=== PATIENT | female | born 1965 | race Caucasian/White ===

== ENCOUNTER 2018-04-18 16:10 | Emergency (ER) | payer OTHER ==
[2016-02-10 15:06] VITALS: Wt 56.2 kg
[~2018-04-18 16:10] MED LIST: AMI25; ASPI81TA94 PO; ESTR-108 TD; ESTR1PAT97 TD; HYDR-2946 PO; IBUP800T37 PO; LEV25 PO; LEVO125T77 PO; LEVO50TA86 PO; LEVO75TA68 PO; ONDA4TAB PO; PAN40 PO; PER PO; PRO25 PO; SIMV-49 PO; SIMV5TAB60 PO; VENL75TA12 PO
--- NOTE | 2018-04-18 16:17 | ER Report ---
History and Physical Time Seen By MD: 16:16 HPI/ROS CHIEF COMPLAINT: Palpitations/dizziness HISTORY OF PRESENT ILLNESS: PT states that she had an episode of a rapid heart rate at 10m. lasted for 10 minutes or so. Pt states it broke on its own. Pt tried to take her pulse but it was too fast to count. PT states that she felt a burning in her throat when it was occuring. no sob. no nausea. Pt states she came in because she still feels light headed. Pt feels as if her heart is beating fast now, however on the monitor it is only 70bpm. Pt has hx of thyroid ds.Pt has also had cardiac work up a year ago in [facility]. Pt had a stress test that was positive so went on to have a cta coronary which showed minimal LAD calcificaions without significant narrowing. PTs EF was 63% REVIEW OF SYSTEMS: Constitutional: No fever, no chills. Eyes: No discharge. ENT: No sore throat. Cardiovascular: + chest pain, + palpitations. Respiratory: No cough, no shortness of breath. Gastrointestinal: No abdominal pain, no vomiting. Genitourinary: No hematuria. Musculoskeletal: No back pain. Skin: No rashes. Neurological: No headache. Allergies: Coded Allergies: No Known Drug Allergies (Verified , 04/18/18) Home Meds Reported Medications Estradiol (ESTRADIOL TRANSDERMAL PATCH) 1 Each Patch.tdwk, 1 EACH TD 07/26/17 Levothyroxine Sodium (LEVOTHYROXINE SODIUM) 50 Mcg Tablet, 50 MCG PO QDAY, TAB 07/26/17 Venlafaxine Hcl (VENLAFAXINE HCL) 75 Mg Tab, 75 MG PO DAILY, TAB 07/26/17 Simvastatin (SIMVASTATIN) 5 Mg Tablet, 5 MG PO HS, TAB 07/26/17 Past Medical/Surgical History Pmhx: hypothyroid, pericarditis Pshx: non contrib Reviewed Nurses Notes: Yes Old Medical Records Reviewed: Yes Hx Smoking: No Smoking Status: Never Smoker Exposure to Second Hand Smoke?: No Hx Substance Use Disorder: No Hx Alcohol Use: No Constitutional Vital Sign - Last 24 Hours 04/18/18 16:16 Temp 98.5 Pulse 79 Resp 19 B/P (MAP) 142/89 Pulse Ox 98 O2 Delivery Room Air Physical Exam General Appearance: The patient is alert, has no immediate need for airway protection and no signs of toxicity. Eyes: Pupils equal and round no pallor or injection, EOMI ENT: no pharyngeal erythema or exudates, Mucous membranes are moist, TM are nl b/l Respiratory: There are no retractions, lungs are clear to auscultation. Cardiovascular: Regular rate and rhythm. pulses are equal and symmetrical Gastrointestinal: Abdomen is soft and non tender, no masses, bowel sounds normal, no guarding, no rigidity or rebound Neurological: Cranial nerves II-XII grossly intact, no sensory or motor loss Skin: Warm and dry, no rashes. Musculoskeletal: Neck is supple non tender, no vertebral tenderness Extremities are nontender, nonswollen and have full range of motion. DIFFERENTIAL DIAGNOSIS: After history and physical exam differential diagnosis was considered for electrolyte abnl, thyroid abnl, anemic, arrhythmia Medical Decision Making Data Points Result Diagram: 04/18/18 1620 04/18/18 1620 Laboratory Hematology Test 04/18/18 16:20 Red Blood Count 4.75 M/uL (4.17-5.56) Mean Corpuscular Volume 87.4 fL (80.0-96.0) Mean Corpuscular Hemoglobin 30.6 pg (26.0-33.0) Mean Corpuscular Hemoglobin Concent 35.0 g/dL (32.0-36.0) Red Cell Distribution Width 12.8 % (11.5-14.5) Mean Platelet Volume 7.8 fL (7.2-11.1) Neutrophils (%) (Auto) 64.3 % (39.4-72.5) Lymphocytes (%) (Auto) 25.0 % (17.6-49.6) Monocytes (%) (Auto) 6.1 % (4.1-12.4) Eosinophils (%) (Auto) 4.0 % (0.4-6.7) Basophils (%) (Auto) 0.6 % (0.3-1.4) Nucleated RBC Relative Count (auto) 0.0 /100WBC Neutrophils # (Auto) 3.2 K/uL (2.0-7.4) Lymphocytes # (Auto) 1.2 K/uL (1.3-3.6) Monocytes # (Auto) 0.3 K/uL (0.3-1.0) Eosinophils # (Auto) 0.2 K/uL (0.0-0.5) Basophils # (Auto) 0.0 K/uL (0.0-0.1) Nucleated RBC Absolute Count (auto) 0.00 K/uL Sodium Level 139 mmol/L (137-145) Potassium Level 4.0 mmol/L (3.5-5.0) Chloride Level 99 mmol/L (98-107) Carbon Dioxide Level 30 mmol/L (22-31) Blood Urea Nitrogen 14 mg/dl (7-18) Creatinine 0.70 mg/dl (0.52-1.04) Glomerular Filtration Rate Calc > 60.0 Random Glucose 91 mg/dl (75-110) Calcium Level 10.1 mg/dl (8.4-10.2) Total Bilirubin 0.4 mg/dl (0.2-1.3) Aspartate Amino Transf (AST/SGOT) 40 U/L (0-35) Alanine Aminotransferase (ALT/SGPT) 40 U/L (0-56) Alkaline Phosphatase 84 U/L (0-126) Troponin I < 0.012 ng/ml Total Protein 7.9 g/dl (6.3-8.2) Albumin 4.4 g/dl (3.5-5.0) Chemistry Test 04/18/18 16:20 White Blood Count 5.0 k/uL (4.5-11.0) Red Blood Count 4.75 M/uL (4.17-5.56) Hemoglobin 14.6 g/dL (12.0-16.0) Hematocrit 41.5 % (34.0-47.0) Mean Corpuscular Volume 87.4 fL (80.0-96.0) Mean Corpuscular Hemoglobin 30.6 pg (26.0-33.0) Mean Corpuscular Hemoglobin Concent 35.0 g/dL (32.0-36.0) Red Cell Distribution Width 12.8 % (11.5-14.5) Platelet Count 231 K/uL (150-450) Mean Platelet Volume 7.8 fL (7.2-11.1) Neutrophils (%) (Auto) 64.3 % (39.4-72.5) Lymphocytes (%) (Auto) 25.0 % (17.6-49.6) Monocytes (%) (Auto) 6.1 % (4.1-12.4) Eosinophils (%) (Auto) 4.0 % (0.4-6.7) Basophils (%) (Auto) 0.6 % (0.3-1.4) Nucleated RBC Relative Count (auto) 0.0 /100WBC Neutrophils # (Auto) 3.2 K/uL (2.0-7.4) Lymphocytes # (Auto) 1.2 K/uL (1.3-3.6) Monocytes # (Auto) 0.3 K/uL (0.3-1.0) Eosinophils # (Auto) 0.2 K/uL (0.0-0.5) Basophils # (Auto) 0.0 K/uL (0.0-0.1) Nucleated RBC Absolute Count (auto) 0.00 K/uL Glomerular Filtration Rate Calc > 60.0 Calcium Level 10.1 mg/dl (8.4-10.2) Total Bilirubin 0.4 mg/dl (0.2-1.3) Aspartate Amino Transf (AST/SGOT) 40 U/L (0-35) Alanine Aminotransferase (ALT/SGPT) 40 U/L (0-56) Alkaline Phosphatase 84 U/L (0-126) Troponin I < 0.012 ng/ml Total Protein 7.9 g/dl (6.3-8.2) Albumin 4.4 g/dl (3.5-5.0) EKG/Imaging EKG Interpretation nsr @ 70 with no acute changes noted. nl QT ED Course/Re-evaluation Clinical Indication for ER IV: IV Access ED Course PTs ekg is stable. Lab work pending. 04/18/2018 5:06:36 pm Lab work stable, acception of tsh pending. will attempt to send home with holter. 04/18/2018 5:14:05 pm Pt declined a holter when offered. Decision to Disposition Date: Apr 18, 2018 Decision to Disposition Time: 17:06 Depart Departure Latest Vital Signs Vital Signs Date Time Temp Pulse Resp B/P (MAP) Pulse Ox O2 Delivery O2 Flow Rate FiO2 04/18/18 16:16 98.5 79 19 142/89 98 Room Air Impression: Primary Impression: Heart palpitations Condition: Improved Disposition: HOME OR SELF-CARE Referrals: VICENTA GARG MD (PCP) 2 Days Patient Instructions: Palpitations (GEN) Additional Instructions: Follow up with your family doctor. Your thyroid test today is still pending Return for any concerns. YOMI ARRIETA DO Apr 18, 2018 16:16
[2018-04-18] MEDS ORDERED: ASPIRIN 81 MG CHEW PO ONE (16:25)
[2018-04-18 16:43] LABS: PLATELET COUNT, AUTOMATED 231 K/uL (150-450)
--- NOTE | 2018-04-18 17:02 | RADIOLOGY IMAGING REPORT ---
FACILITY: [facility] PATIENT NAME: Cortney Menjivar : 1965 MR: [id number] V: [id number] EXAM DATE: ORDERING PHYSICIAN: YOMI ARRIETA TECHNOLOGIST: [place] [facility] [place] Patient: Cortney Menjivar : 1965 Visit/Account:[id number] Date of Sevice: 04/18/2018 Portable chest, one view. HISTORY: Chest pain. COMPARISON: 09/02/2009. The heart and mediastinum are unremarkable. Pulmonary vessels are unremarkable. The lungs are volum inous. The pleural surfaces are unremarkable. No pneumothorax. Mild scoliosis is present in the thor acolumbar spine. IMPRESSION: Voluminous lungs. Otherwise no evidence of acute cardiopulmonary disease. Report Dictated By: Ho Hurley MD at 04/18/2018 4:56 PM Report E-Signed By: Ho Hurley MD at 04/18/2018 4:57 PM WSN:[email or web address]
[2018-04-18 17:19] VITALS: BP 119/76
--- NOTE | 2018-04-18 17:38 | EKG ---
[facility] PATIENT NAME: PATRICIA WALLER : [id number] MR: [id number] V: [id number] EXAM DATE: ORDERING PHYSICIAN: YOMI ARRIETA TECHNOLOGIST: GABE Test Reason : Blood Pressure : / mmHG Vent. Rate : 071 BPM Atrial Rate : 071 BPM P-R Int : 148 ms QRS Dur : 084 ms QT Int : 404 ms P-R-T Axes : 061 076 070 degrees QTc Int : 439 ms Normal sinus rhythm Normal ECG When compared with ECG of 08-JAN-2014 17:22, T wave inversion no longer evident in Inferior leads T wave inversion less evident in Anterior leads Confirmed by JO DO ([id number]) on 04/18/2018 8:11:10 PM Referred By: Confirmed By:JO DO
== END 2018-04-18 17:26 | disposition home or self-care (01) ==
LOC: ER 16:17
DX: R00.2 Palpitations (principal)
CPT/HCPCS: 71045; 82040; 82247; 82310; 82374; 82435; 82565; 82947; 84075; 84132; 84155; 84295; 84443; 84450; 84460; 84484; 84520; 85025; 93005; 99284

== ENCOUNTER → 2018-08-19 | Outpatient (CLI) | payer OTHER ==
[2016-02-10 15:06] VITALS: BMI 21.3
--- NOTE | 2018-08-20 09:18 | RADIOLOGY IMAGING REPORT ---
FACILITY: [facility] - [place] PATIENT NAME: PATRICIA WALLER : [id number] MR: [id number] V: [id number] EXAM DATE: [id number] ORDERING PHYSICIAN: VICENTA GARG TECHNOLOGIST: Annie Gasca PROCEDURE:BILATERAL DIGITAL SCREENING MAMMOGRAM WITH CAD ASSISTED INTERPRETATION & 3D TOMOSYNTHESIS COMPARISON:Prior mammograms 07/20/17, 02/28/16, 02/07/16, 02/02/15, 12/16/13, 09/13/12. INDICATIONS:screening FINDINGS: A small to moderate amount of fibroglandular tissue is seen throughout the breasts. The parenchymal pattern has remained stable allowing for difference in mammographic technique & patient positioning. There is no evidence of malignant appearing mass, malignant appearing calcifications or other secondary sign of malignancy in either breast. DIAGNOSTIC CATEGORY 1--NEGATIVE. RECOMMENDATIONS: ROUTINE MAMMOGRAM AND CLINICAL EVALUATION. IMPRESSION: BIRADS 1: Negative. No significant abnormality is seen. Dictated by: Marisabel Solitario M.D. on 08/19/2018 at 17:10 Transcribed by: REBECCA on 08/20/2018 at 7:58 Approved by: Marisabel Solitario M.D. on 08/20/2018 at 9:17 [facility]
== END ==
LOC: MAMO 01:23
PROVIDERS: ATTEND Family Medicine
DX: Z12.31 Encounter for screening mammogram for malignant neoplasm of breast (principal)
CPT/HCPCS: 77063; 77067

== ENCOUNTER 2018-11-26 05:57 | Emergency (ER) | payer OTHER ==
[2016-02-10 15:06] VITALS: Wt 56.2 kg
[~2018-11-26 05:57] MED LIST changes: -SIMV5TAB60 PO; +SIMV5TAB69 PO
--- NOTE | 2018-11-26 06:07 | ER Report ---
History and Physical Time Seen By MD: 06:06 HPI/SHARAN CHIEF COMPLAINT: blood in urine HISTORY OF PRESENT ILLNESS: This is a 53 year old female. She had blood in urine starting this morning at 0300. She had had urinary frequency. Noted pink urine and this has worsened. No flank or abdominal pain. She has had 3 doses of Valtrex for shingles and was worried that this might be the cause. No fevers. No trouble with bowels and no blood in bowels. She takes aspirin daily. NO history of kidney stones. No nausea or vomiting. No bruising or nose bleeds. No history of bleeding problems. Allergies: Coded Allergies: No Known Drug Allergies (Verified , 11/26/18) Home Meds Active Scripts Phenazopyridine Hcl (PHENAZOPYRIDINE HCL) 200 Mg Tablet, 200 MG PO TID PRN for PAIN, #10 TAB 0 Refills Prov:LUCERO CHRISTIAN MD 11/26/18 Sulfamethoxazole/Trimet 800-160 Mg Tab (BACTRIM DS TABLET) 1 Each Tablet, 1 TAB PO Q12H for 5 Days, #10 TAB 0 Refills Prov:LUCERO CHRISTIAN MD 11/26/18 Reported Medications Estradiol (ESTRADIOL TRANSDERMAL PATCH) 1 Each Patch.tdwk, 1 EACH TD 07/26/17 Levothyroxine Sodium (LEVOTHYROXINE SODIUM) 50 Mcg Tablet, 50 MCG PO QDAY, TAB 07/26/17 Venlafaxine Hcl (VENLAFAXINE HCL) 75 Mg Tab, 75 MG PO DAILY, TAB 07/26/17 Simvastatin (SIMVASTATIN) 5 Mg Tablet, 5 MG PO HS, TAB 07/26/17 Reviewed Nurses Notes: Yes Hx Smoking: No Smoking Status: Never Smoker Exposure to Second Hand Smoke?: No Hx Substance Use Disorder: No Hx Alcohol Use: No Constitutional Vital Sign - Last 24 Hours 11/26/18 11/26/18 11/26/18 11/26/18 06:02 06:07 06:12 06:59 Temp 97.3 Pulse 84 81 Resp 14 B/P (MAP) 139/79 139/79 (99) 106/84 (91) Pulse Ox 92 96 O2 Delivery Room Air 11/26/18 07:12 Pulse 70 Pulse Ox 90 Physical Exam General Appearance: The patient is alert. No acute distress. Eyes: Pupils are equal, round. No pallor, injection or icterus. ENT: Mucous membranes are moist. Normal oral mucosa. Posterior oropharynx is normal. Neck: Supple and non tender. Respiratory: Lungs are clear to auscultation. Cardiovascular: Regular rate and rhythm. No murmurs, gallops or rubs. Normal capillary refill. Gastrointestinal: Abdomen is soft and non tender. Nondistended. Normal active bowel sounds. No costovertebral angle tenderness with percussion. Neurological: Alert and oriented x3. Skin: Warm and dry. No bruising. DIFFERENTIAL DIAGNOSIS: After history and physical exam, differential diagnosis was considered for hematuria and urinary frequency, will look for urinary infection, kidney stones, other causes of bleeding. Medical Decision Making Data Points Result Diagram: 11/26/18 0619 11/26/18 0619 Laboratory Hematology Test 11/26/18 06:05 11/26/18 06:19 Urine Color Yellow Urine Clarity Clear Urine pH 6.0 pH (4.8-9.5) Urine Specific [place] 1.002 Urine Protein 30 mg/dL (NEGATIVE) Urine Glucose (UA) Negative mg/dL (NEGATIVE) Urine Ketones Negative mg/dL (NEGATIVE) Urine Blood Large (NEGATIVE) Urine Nitrite Negative (NEGATIVE) Urine Bilirubin Negative (NEGATIVE) Urine Urobilinogen Negative mg/dL (0.2-1.9) Urine Leukocyte Esterase Moderate (NEGATIVE) Urine RBC <1 /HPF (0-2/HPF) Urine WBC 18 /HPF (0-5/HPF) Urine Squamous Epithelial Cells Few /LPF (</=FEW) Urine Bacteria Few /HPF (NONE-FEW) Urine Mucus None /HPF (NONE-FEW) Red Blood Count 5.19 M/uL (4.17-5.56) Mean Corpuscular Volume 89.0 fL (80.0-96.0) Mean Corpuscular Hemoglobin 29.4 pg (26.0-33.0) Mean Corpuscular Hemoglobin Concent 33.0 g/dL (32.0-36.0) Red Cell Distribution Width 12.8 % (11.5-14.5) Mean Platelet Volume 7.8 fL (7.2-11.1) Neutrophils (%) (Auto) 76.3 % (39.4-72.5) Lymphocytes (%) (Auto) 13.8 % (17.6-49.6) Monocytes (%) (Auto) 7.7 % (4.1-12.4) Eosinophils (%) (Auto) 1.6 % (0.4-6.7) Basophils (%) (Auto) 0.6 % (0.3-1.4) Nucleated RBC Relative Count (auto) 0.0 /100WBC Neutrophils # (Auto) 6.7 K/uL (2.0-7.4) Lymphocytes # (Auto) 1.2 K/uL (1.3-3.6) Monocytes # (Auto) 0.7 K/uL (0.3-1.0) Eosinophils # (Auto) 0.1 K/uL (0.0-0.5) Basophils # (Auto) 0.1 K/uL (0.0-0.1) Nucleated RBC Absolute Count (auto) 0.00 K/uL Prothrombin Time 13.0 seconds (12.0-14.4) Prothromb Time International Ratio 0.98 Activated Partial Thromboplast Time 27 seconds (23-35) Sodium Level 134 mmol/L (137-145) Potassium Level 3.6 mmol/L (3.5-5.0) Chloride Level 97 mmol/L (98-107) Carbon Dioxide Level 25 mmol/L (22-31) Blood Urea Nitrogen 16 mg/dl (7-18) Creatinine 0.70 mg/dl (0.52-1.04) Glomerular Filtration Rate Calc > 60.0 Random Glucose 99 mg/dl (75-110) Calcium Level 9.7 mg/dl (8.4-10.2) Total Bilirubin 0.8 mg/dl (0.2-1.3) Aspartate Amino Transf (AST/SGOT) 39 U/L (0-35) Alanine Aminotransferase (ALT/SGPT) 45 U/L (0-56) Alkaline Phosphatase 91 U/L (0-126) Total Protein 7.9 g/dl (6.3-8.2) Albumin 4.7 g/dl (3.5-5.0) Chemistry Test 11/26/18 06:05 11/26/18 06:19 Urine Color Yellow Urine Clarity Clear Urine pH 6.0 pH (4.8-9.5) Urine Specific [place] 1.002 Urine Protein 30 mg/dL (NEGATIVE) Urine Glucose (UA) Negative mg/dL (NEGATIVE) Urine Ketones Negative mg/dL (NEGATIVE) Urine Blood Large (NEGATIVE) Urine Nitrite Negative (NEGATIVE) Urine Bilirubin Negative (NEGATIVE) Urine Urobilinogen Negative mg/dL (0.2-1.9) Urine Leukocyte Esterase Moderate (NEGATIVE) Urine RBC <1 /HPF (0-2/HPF) Urine WBC 18 /HPF (0-5/HPF) Urine Squamous Epithelial Cells Few /LPF (</=FEW) Urine Bacteria Few /HPF (NONE-FEW) Urine Mucus None /HPF (NONE-FEW) White Blood Count 8.8 k/uL (4.5-11.0) Red Blood Count 5.19 M/uL (4.17-5.56) Hemoglobin 15.2 g/dL (12.0-16.0) Hematocrit 46.2 % (34.0-47.0) Mean Corpuscular Volume 89.0 fL (80.0-96.0) Mean Corpuscular Hemoglobin 29.4 pg (26.0-33.0) Mean Corpuscular Hemoglobin Concent 33.0 g/dL (32.0-36.0) Red Cell Distribution Width 12.8 % (11.5-14.5) Platelet Count 270 K/uL (150-450) Mean Platelet Volume 7.8 fL (7.2-11.1) Neutrophils (%) (Auto) 76.3 % (39.4-72.5) Lymphocytes (%) (Auto) 13.8 % (17.6-49.6) Monocytes (%) (Auto) 7.7 % (4.1-12.4) Eosinophils (%) (Auto) 1.6 % (0.4-6.7) Basophils (%) (Auto) 0.6 % (0.3-1.4) Nucleated RBC Relative Count (auto) 0.0 /100WBC Neutrophils # (Auto) 6.7 K/uL (2.0-7.4) Lymphocytes # (Auto) 1.2 K/uL (1.3-3.6) Monocytes # (Auto) 0.7 K/uL (0.3-1.0) Eosinophils # (Auto) 0.1 K/uL (0.0-0.5) Basophils # (Auto) 0.1 K/uL (0.0-0.1) Nucleated RBC Absolute Count (auto) 0.00 K/uL Prothrombin Time 13.0 seconds (12.0-14.4) Prothromb Time International Ratio 0.98 Activated Partial Thromboplast Time 27 seconds (23-35) Glomerular Filtration Rate Calc > 60.0 Calcium Level 9.7 mg/dl (8.4-10.2) Total Bilirubin 0.8 mg/dl (0.2-1.3) Aspartate Amino Transf (AST/SGOT) 39 U/L (0-35) Alanine Aminotransferase (ALT/SGPT) 45 U/L (0-56) Alkaline Phosphatase 91 U/L (0-126) Total Protein 7.9 g/dl (6.3-8.2) Albumin 4.7 g/dl (3.5-5.0) Coagulation Test 11/26/18 06:19 Prothrombin Time 13.0 seconds Prothromb Time International Ratio 0.98 Activated Partial Thromboplast Time 27 seconds Urinalysis Test 11/26/18 06:05 Urine Color Yellow Urine Clarity Clear Urine pH 6.0 pH (4.8-9.5) Urine Specific [place] 1.002 Urine Protein 30 mg/dL (NEGATIVE) Urine Glucose (UA) Negative mg/dL (NEGATIVE) Urine Ketones Negative mg/dL (NEGATIVE) Urine Blood Large (NEGATIVE) Urine Nitrite Negative (NEGATIVE) Urine Bilirubin Negative (NEGATIVE) Urine Urobilinogen Negative mg/dL (0.2-1.9) Urine Leukocyte Esterase Moderate (NEGATIVE) Urine RBC <1 /HPF (0-2/HPF) Urine WBC 18 /HPF (0-5/HPF) Urine Squamous Epithelial Cells Few /LPF (</=FEW) Urine Bacteria Few /HPF (NONE-FEW) Urine Mucus None /HPF (NONE-FEW) EKG/Imaging Imaging EXAMINATION: CT Abdomen and Pelvis Without Contrast 11/26/2018 6:42 AM HISTORY: hematuria TECHNIQUE: Renal stone protocol - Spiral scan was obtained through the kidney s, ureters and bladder without intravenous contrast. One of the following dose optimization techniques was utilized in the performance of this exam: Automated exposure control; adjustment of the mA an d/or kV according to the patient's size; or use of an iterative reconstruction technique. Specific details can be referenced in the facility's radiology CT exam operational policy. COMPARISON STUDIES: 11/23/2007. At this point I have the report but cannot retrieve the images for direct comparison. FINDINGS: Right kidney and ureter: Negative. No stone or obstruction. Left kidney and ureter: Negative. No stone or obstruction. Bladder: negative Liver / biliary: Prior cholecystectomy. Pancreas: negative Spleen: Incidental small accessory splenule inferomedially. Adrenal glands: negative Retroperitoneum: negative Pelvic structures: Prior hysterectomy. Bowel / peritoneum / mesenteries: No acute finding. Normal appendix. Vessels: negative Musculoskeletal / Body wall: negative Lymph node assessment: negative Lower chest: 2 mm anterior right lower lobe micronodule (series 2 image 3). IMPRESSION: 1. Negative evaluation for kidney stone or other etiology for hematuria. 2. No significant acute finding otherwise in the abdomen or pelvis. 3. 2 mm right lower lobe pulmonary micronodule. Based on size this would not require follow-up unless otherwise clinically indicated. Report Dictated By: Raymond May MD at 11/26/2018 7:10 AM ED Course/Re-evaluation Clinical Indication for ER IV: IV Access ED Course Urinalysis with changes that suggest urinary infection. CT scan without contrast was negative for kidney stones or other abnormality. Small pulmonary nodule discussed with the patient. CBC and coagulation studies were negative as well. Bactrim and Pyridium for urinary tract infection. Urine culture ordered. Decision to Disposition Date: Nov 26, 2018 Decision to Disposition Time: 07:33 Depart Departure Latest Vital Signs Vital Signs Date Time Temp Pulse Resp B/P (MAP) Pulse Ox O2 Delivery O2 Flow Rate FiO2 11/26/18 07:12 70 90 11/26/18 06:59 106/84 (91) 11/26/18 06:02 97.3 14 Room Air Impression: Primary Impression: Urinary tract infection Condition: Improved Disposition: HOME OR SELF-CARE Referrals: VICENTA GARG MD (PCP) New Scripts Phenazopyridine Hcl (PHENAZOPYRIDINE HCL) 200 Mg Tablet 200 MG PO TID PRN for PAIN, #10 TAB 0 Refills Prov: LUCERO CHRISTIAN MD 11/26/18 Sulfamethoxazole/Trimet 800-160 Mg Tab (BACTRIM DS TABLET) 1 Each Tablet 1 TAB PO Q12H for 5 Days, #10 TAB 0 Refills Prov: LUCERO CHRISTIAN MD 11/26/18 Patient Instructions: Hematuria (ED), Urinary Tract Infection in Women (ED) Additional Instructions: Take the antibiotic Bactrim DS twice a day for 5 days. For the urgency and frequency or urination, you can try taking a medicine called Pyridum 200mg every 8 hours as needed for these symptoms. Increase fluid intake. Follow-up with your primary care provider for re-evaluation if not improving. Problem Qualifiers Primary Impression: Urinary tract infection Urinary tract infection type: acute cystitis Hematuria presence: with hematuria Qualified Codes: N30.01 - Acute cystitis with hematuria LUCERO CHRISTIAN MD Nov 26, 2018 06:07
[2018-11-26 06:31] LABS: PLATELET COUNT, AUTOMATED 270 K/uL (150-450)
[2018-11-26 06:37] LABS: INR 0.98
[2018-11-26 06:59] VITALS: BP 106/84
--- NOTE | 2018-11-26 07:21 | RADIOLOGY IMAGING REPORT ---
FACILITY: [facility] PATIENT NAME: Cortney Menjivar : 1965 MR: [id number] V: [id number] EXAM DATE: ORDERING PHYSICIAN: LUCERO CHRISTIAN TECHNOLOGIST: Location: [facility] Patient: Cortney Menjivar : 1965 Visit/Account:[id number] Date of Sevice: 11/26/2018 EXAMINATION: CT Abdomen and Pelvis Without Contrast 11/26/2018 6:42 AM HISTORY: hematuria TECHNIQUE: Renal stone protocol - Spiral scan was obtained through the kidneys, ureters and bladder without intravenous contrast. One of the following dose optimization techniques was utilized in the performance of this exam: Autom ated exposure control; adjustment of the mA and/or kV according to the patient's size; or use of an i terative reconstruction technique. Specific details can be referenced in the facility's radiology C T exam operational policy. COMPARISON STUDIES: 11/23/2007. At this point I have the report but cannot retrieve the images for d irect comparison. FINDINGS: Right kidney and ureter: Negative. No stone or obstruction. Left kidney and ureter: Negative. No stone or obstruction. Bladder: negative Liver / biliary: Prior cholecystectomy. Pancreas: negative Spleen: Incidental small accessory splenule inferomedially. Adrenal glands: negative Retroperitoneum: negative Pelvic structures: Prior hysterectomy. Bowel / peritoneum / mesenteries: No acute finding. Normal appendix. Vessels: negative Musculoskeletal / Body wall: negative Lymph node assessment: negative Lower chest: 2 mm anterior right lower lobe micronodule (series 2 image 3). IMPRESSION: 1. Negative evaluation for kidney stone or other etiology for hematuria. 2. No significant acute finding otherwise in the abdomen or pelvis. 3. 2 mm right lower lobe pulmonary micronodule. Based on size this would not require follow-up unless otherwise clinically indicated. Report Dictated By: Raymond May MD at 11/26/2018 7:10 AM Report E-Signed By: Raymond May MD at 11/26/2018 7:18 AM WSN:[id number]
[2018-11-26] MEDS ORDERED: PHEN200T32 PO (07:35)
[2018-11-26] MEDS ORDERED: SULF-198 PO (07:35)
[2018-11-26] MEDS ORDERED: TRIMETH/SULFA DS 160-800MG TAB PO ONE (07:40)
[2018-11-26] MEDS ORDERED: PHENAZOPYRIDINE 200 MG TAB PO ONE (07:40)
== END 2018-11-26 08:10 | disposition home or self-care (01) ==
LOC: ER 06:11
DX: N30.01 Acute cystitis with hematuria (principal); R91.1 Solitary pulmonary nodule
CPT/HCPCS: 74176; 81001; 82040; 82247; 82310; 82374; 82435; 82565; 82947; 84075; 84132; 84155; 84295; 84450; 84460; 84520; 85025; 85610; 85730; 87088; 87186; 99284

== ENCOUNTER → 2019-02-20 | Outpatient (CLI) | payer OTHER ==
[2016-02-10 15:06] VITALS: BMI 21.3
[~2019-02-20] MED LIST changes: +IOPAMIDOL 76% 150 ML INFUS BTL 150 ML ONE; +PHEN200T32 PO; +SULF-198 PO
--- NOTE | 2019-02-20 17:42 | RADIOLOGY IMAGING REPORT ---
FACILITY: [facility] [place] PATIENT NAME: Cortney Menjivar : 1965 MR: [id number] V: [id number] EXAM DATE: [id number] ORDERING PHYSICIAN: REMY RAMOS TECHNOLOGIST: Location: [facility] [place] Patient: Cortney Menjivar : 1965 Visit/Account:[id number] Date of Sevice: 02/20/2019 EXAMINATION: CT abdomen and pelvis without and with IV contrast HISTORY: Rectal bleeding. Abdominal tenderness. Weakness. Fatigue. TECHNIQUE: Axial CT images of the abdomen and pelvis were obtained without and with IV contrast, wi th coronal and sagittal 2D reconstructed images. One of the following dose optimization techniques was utilized in the performance of this exam: Autom ated exposure control; adjustment of the mA and/or kV according to the patient's size; or use of an i terative reconstruction technique. Specific details can be referenced in the facility's radiology C T exam operational policy. Contrast: 75 mL of IV [id number]-[id number]. COMPARISON: CT abdomen/pelvis without contrast 11/26/2018. FINDINGS: Liver: Normal hepatic size and morphology. No focal liver lesion. The hepatic veins and portal veins are patent. Gallbladder and bile ducts: Prior cholecystectomy. Stable mild prominence of the central bile ducts may relate to the postcholecystectomy state. Spleen: Negative. Pancreas: Negative. Adrenal glands: Negative. Kidneys: Negative. No urinary calculi or hydronephrosis. The kidneys enhance normally. Bowel and peritoneum: The small bowel and colon are normal in caliber, without evidence of obstructi on or any focal inflammatory process. No abnormal bowel wall thickening. Normal appendix in the right pelvis. No free fluid or free intraperitoneal air. Pelvic structures: Hysterectomy. The urinary bladder is decompressed. Lymph node assessment: Negative. Vessels: Negative. Musculoskeletal: No acute osseous findings. Chronic degenerative changes along the lower lumbar spi ne with moderate disc space narrowing at the lumbosacral interspace. Body wall: Negative. Lung bases: Negative. IMPRESSION: 1. No CT evidence of acute intra-abdominal pathology. 2. The small bowel and colon are unremarkable by CT, including the appendix. 3. Prior cholecystectomy and hysterectomy. Report Dictated By: Jesus Marin MD at 02/20/2019 5:29 PM Report E-Signed By: Jesus Marin MD at 02/20/2019 5:37 PM WSN:[id number]
== END ==
LOC: CT 16:41
PROVIDERS: ATTEND Family Medicine
DX: Z90.49 Acquired absence of other specified parts of digestive tract (principal); Z90.710 Acquired absence of both cervix and uterus
CPT/HCPCS: 74178; Q9967

== ENCOUNTER 2019-02-27 00:09 | Day surgery (SDC) | payer OTHER ==
[2016-02-10 15:06] VITALS: Ht 162.6 cm; Wt 57.2 kg
[~2019-02-27] VITALS: Ht 162.6 cm; Wt 57.2 kg
[~2019-02-27 00:09] MED LIST changes: -IOPAMIDOL 76% 150 ML INFUS BTL 150 ML ONE
[2019-02-27] MEDS ORDERED: LIDOCAINE/SOD BICARB 8.4% SYR ID ONE (10:30)
[2019-02-27] MEDS ORDERED: NORMOSOL R SOLN(*) 1000 ML BAG 1,000 ML IV PRN (10:35)
[2019-02-27 10:43] VITALS: BP 133/83
[2019-02-27 12:24] VITALS: BP 86/46
[2019-02-27] MEDS ORDERED: PROPOFOL EMUL(*) 10MG/ML 20 ML 60 ML ONE (12:26)
[2019-02-27 12:45] VITALS: BP 106/72
[2019-02-27 12:55] VITALS: BP 109/77
[2019-02-27 12:57] VITALS: BP 109/78
--- NOTE | 2019-02-27 13:27 | NUR ---
1224- PT. RECEIVED FROM THE OR VIA STRETCHER WITH THE SIDERAILS UP. SBAR RECEIVED FROM BLAYNE HARMON AND DR. RIVERA. SEE ADMISSION ASSESSMENT. 1242- PT. RETURNED TO ROOM AIR AND STATES THAT SHE IS GOING TO REST FOR A WHILE. 1255- PT. STATES THAT SHE NEEDS TO USE THE RESTROOM SO ORTHOSTATICS PREFORMED BY Marilyn KIMBLE RN. 1300- PT. TO THE BATHROOM. 1310- PT. GETTING DRESSED. 1315- IV TAKEN OUT AND PRESSURE DRESSING APPLIED. 1320- PT. ACCOMPANIED OUT AMBULATORY BY MYSELF AND . SEE DISCHARGE ASSESSMENT.
== END 2019-02-27 13:20 | disposition home or self-care (01) ==
LOC: OR 00:09
PROVIDERS: ATTEND Family Medicine
DX: K63.5 Polyp of colon (principal)
CPT/HCPCS: 00811; 45380; 88305; J2704